=== PATIENT | male | born 1945 | race Caucasian/White ===

== ENCOUNTER → 2018-08-06 | Outpatient (REF) | payer BC, OTHER ==
[2018-08-07 12:06] LABS: TESTOSTERONE 281 NG/DL (241-827)
== END ==
LOC: M LAB REF 10:59
DX: N52.9 Male erectile dysfunction, unspecified (principal); R68.82 Decreased libido
CPT/HCPCS: 84403

== ENCOUNTER → 2019-07-16 | Outpatient (CLI) | payer MEDICARE, OTHER ==
[~2019-07-16] MED LIST: ACET65TA; ACYC400T PO; CARD120T4 PO; CARD240C5 PO; COUM1TAB18; DIFLUCAN PO; FENT12DI12 TD; FENT50DI21 TD; FLOM0.4C39 PO; FLUC200T2 PO; FURO20TA PO; FURO20TA2 PO; LEVO500T PO; LOPR50TA PO; NEUP480I2 INJ; NEUP480I2 SC; OMEP40CA2 PO; OXYC-208 PO; OXYC1TAB23 PO; PERC5TAB PO; PERC5TAB8; PERC7.5T8; POTA10TA2 PO; PRED20TA PO; PROC10TA PO; SENO8.6T11 PO; SULF1TAB23 PO; TAMS0.4C PO; TYLE325T5 PO; UROX10TA10 PO; [UNRECOGNIZED DRUG - OTHER] IV
[2019-07-16 16:15] LABS: BASO # 0.1 10^3/uL (0.0-0.2); BASO % 0.6 % (0.0-1.0); EOS # 0.1 10^3/uL (0.0-0.5); HEMOGLOBIN 17.6 g/dl (13.5-17.5); LYMPH # 1.5 10^3/uL (1.5-5.0); LYMPH % 14.8 % (24.0-44.0); MEAN CORPUSCULAR HEMOGLOBIN 31.2 pg (27.0-33.0); MEAN CORPUSCULAR HGB CONC 34.5 g/dl (32.0-36.5); MEAN CORPUSCULAR VOLUME 90.4 fl (80.0-96.0); MONO # 0.8 10^3/uL (0.0-0.8); MONO % 8.2 % (0.0-5.0); NEUTROPHILS # 7.6 10^3/uL (1.5-8.5); NEUTROPHILS % 74.9 % (36.0-66.0); PLATELET COUNT, AUTOMATED 167 10^3/uL (150-450); RED BLOOD COUNT 5.64 10^6/uL (4.30-6.10); WHITE BLOOD COUNT 10.1 10^3/uL (4.0-10.0)
[2019-07-16 16:43] LABS: ERYTHROCYTE SEDIMENTATION RATE 1 mm/hr (0-20)
[2019-07-16 16:47] LABS: ALBUMIN 4.5 GM/DL (3.2-5.2); ALT/SGPT 56 U/L (12-78); BILIRUBIN,TOTAL 2.3 MG/DL (0.2-1.0); BLOOD UREA NITROGEN 26 MG/DL (7-18); CARBON DIOXIDE LEVEL 26 MEQ/L (21-32); CHLORIDE LEVEL 107 MEQ/L (98-107); CREATININE FOR GFR 1.12 MG/DL (0.70-1.30); GLOMERULAR FILTRATION RATE > 60.0 (>42); GLUCOSE, FASTING 86 MG/DL (70-100); POTASSIUM SERUM 4.1 MEQ/L (3.5-5.1); RHEUMATOID FACTOR QUANT < 10.0 IU/ML (<15.0); SODIUM LEVEL 141 MEQ/L (136-145); TOTAL PROTEIN 6.6 GM/DL (6.4-8.2); URIC ACID 6.7 MG/DL (3.5-7.2)
== END ==
LOC: M LAB 15:20
PROVIDERS: ATTEND Internal Medicine Rheumatology
DX: M25.579 Pain in unspecified ankle and joints of unspecified foot (principal)

== ENCOUNTER → 2020-09-04 | Outpatient (CLI) | payer MEDICARE, OTHER ==
--- NOTE | 2020-09-04 14:36 | REP ---
INDICATION: PAIN. COMPARISON: 09/29/2013. TECHNIQUE: Two views FINDINGS: Spurring at the inferior margin of the clavicle without widening of the AC joint or elevation of the clavicle in relationship to the acromion. The medial clavicular fracture about the 3.5 cm from the sternoclavicular joint. There is a least a half shaft width inferior displacement of the lateral fragment. I do not see adjacent pneumothorax. There is no visible underlying rib fracture. The scapula and humeral head were unremarkable. IMPRESSION: 1. There is a displaced fracture of the medial aspect of the left clavicle about 4 cm from the sternoclavicular joint and with at least a half shaft with inferior displacement of the lateral fragment. The displacement appears more on the straight than angled view. There are no other bony findings or subjacent pneumothorax. <Electronically signed by Manohar Rodriguez > 09/04/20 [id number]
== END ==
LOC: M WUC 13:52
PROVIDERS: ATTEND Physician Assistant
DX: M25.512 Pain in left shoulder (principal); S42.012A Anterior displaced fracture of sternal end of left clavicle, initial encounter for closed fracture; X58.XXXA Exposure to other specified factors, initial encounter; Y92.9 Unspecified place or not applicable

== ENCOUNTER → 2021-03-19 | Outpatient (REF) | payer MEDICARE, OTHER ==
[2021-03-19 12:50] LABS: FOLATE 18.6 NG/ML
== END ==
LOC: M LAB REF 12:03
PROVIDERS: ATTEND Internal Medicine
DX: G60.9 Hereditary and idiopathic neuropathy, unspecified (principal)

== ENCOUNTER → 2023-03-31 | Outpatient (REF) | payer MEDICARE, OTHER | LOC: M LAB REF 12:13 | PROVIDERS: ATTEND Physician Assistant Medical | DX: N52.9 Male erectile dysfunction, unspecified (principal) ==

== ENCOUNTER → 2024-02-22 | Outpatient (CLI) | payer MEDICARE, OTHER | LOC: M CARPUL 10:44 | PROVIDERS: ATTEND Internal Medicine | DX: I48.21 Permanent atrial fibrillation (principal); I35.1 Nonrheumatic aortic (valve) insufficiency ==

== ENCOUNTER → 2024-04-19 | Outpatient (CLI) | payer MEDICARE, OTHER | LOC: M RAD 13:37 | PROVIDERS: ATTEND Internal Medicine | DX: I70.201 Unspecified atherosclerosis of native arteries of extremities, right leg (principal) ==

== ENCOUNTER → 2024-09-04 | Outpatient (CLI) | payer MEDICARE, OTHER | LOC: M LAB 10:55 | PROVIDERS: ATTEND Urology | DX: C61 Malignant neoplasm of prostate (principal) ==

== ENCOUNTER → 2025-03-03 | Outpatient (CLI) | payer MEDICARE, OTHER | LOC: M LAB 13:53 | PROVIDERS: ATTEND Urology | DX: C61 Malignant neoplasm of prostate (principal) ==

== ENCOUNTER → 2025-10-06 | Outpatient (CLI) | payer MEDICARE, OTHER | LOC: M LAB 09:53 | PROVIDERS: ATTEND Urology | DX: C61 Malignant neoplasm of prostate (principal) ==